=== PATIENT | female | born 1940 | race Caucasian/White ===

== ENCOUNTER 2023-06-09 15:30 | Outpatient (RCR) | payer MEDICARE, SELFPAY ==
--- NOTE | 2023-05-10 16:33 | PTOPEVAL1 ---
Assessment and note entered by Shwetha Gan, PT Evaluation Information Assessment Status Evaluation Diagnosis left foot drop Therapy condition Low back pain, weakness, abnormality of gait Onset February 2023 Subjective Information Had back surgery in December L4-5, reports shaved off disc and some bone. When released in February was released for all activity within her tolerance. Initially was just walking her driveway, did not do therapy initially. Is currently walking her subdivision 23 minutes with her granddaughters. Note her foot started hurting in October, went to walk-in clinic and didn't find anything. Went to pain management after this, Epidural lasted 3 weeks. Primary care had provided anti-biotics for cellulitis but found later it was gout. Had received a referral to foot doctor and he gave her a shot in the foot, 2 rounds of oral and one shot for her foot pain. Then he put her on allopurin for gout. Is doing her routine at least an hour a day with walking, then got to the point would wake her up at night but would move areas, and would also have numbness varying places. Does have arthrtis in right foot though. Foot doctor thinks is from her back. Is doing her morning exercises from [facility] and from her nephew. Today her left sit bone hurts and is causing limping Reported Pain Level Pain Score 2: Self Report Additional Pain Score Comments Left sit bone and left low back Assessment PT Clinical Summary Pt presented with complaints of foot/lower leg pain and tingling that changes location. Reports had back surgery earlier this year for L4-5 discectomy as well and after visiting [facility] doctors for foot pain was referred to therapy for left foot drop. Today she did not demo significnat foot drop while in the clinic though she did demo a limp with decreased stance time on left leg. She also reports pain in left lower back and iscial tuberosity on left side with prominent left sacral border. 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
--- NOTE | 2023-05-10 16:34 | OPREHPOC ---
Outpatient Therapy Plan of Care This is a Multidisciplinary Plan of Care that may contain components documented by all disciplines (PT, OT, and ST.) PT Problem 1 PT Problem #1 Knowledge Deficit PT Goal 1 Goal Pt will be independent in HEP Pt will verbalize understanding of diagnosis and prognosis Target Visit 8 PT Problem 2 PT Problem #2 Pain PT Goal 1 Goal Pt will report greatest pain level at 3/10 or less to improve ADLs Target Visit 8 PT Goal 2 Goal Pt will report resolution of pain to return to PLOF Target Visit 16 PT Problem 3 PT Problem #3 Impaired Strength PT Goal 1 Goal Pt will demo equal strength RLE and LLE in all tested planes Target Visit 8 PT Goal 2 Goal Pt will demo strength of 4/5 in all tested planes Target Visit 16 PT Problem 4 PT Problem #4 Impaired Gait PT Goal 1 Goal Pt will demo normalized gait pattern with equal stance time, step length, and ankle control. Target Visit 16
--- NOTE | 2023-06-09 16:30 | PTOPDC ---
Assessment and note entered by Shwetha Gan, PT Assessment Status Discharge Diagnosis left foot drop Therapy conditions low back pain, weakness, abnormality of gait and mobility Onset February 2023 Subjective Information Pt reports self perceived improvement 5-10% Reports hasn't been walking for a couple months. Is still on allopurin. Foot pain has not improved any since starting therapy right side sit bone is better most of the time . States left side is still bad, is weak and hurting . Pt has been consistent with heel lift in left shoe but this hasn't seemed to make a difference. Feels like her rib thing has set her back. Pt does feel like her low back pain and sit bone pain is less frequent but still duration. Reported Pain Level Pain Score 3,0: Self Report Assessment PT Clinical Summary Pt has been attending therapy for diagnosis of drop foot. Drop foot was not observed today and pt 's complaints had been focused on low back and hip through therapy. Pt reports only a 5-10% improvement overall since initiation of therapy. While she shows improvement in strength, alignment , ROM, and gait, she continues to have high levels of pain which have actually increased since starting therapy. Thus patient is being discharged due to max benefit being met. Pt was encouraged to reach out to her back surgeon for further consultation related to discomfort. Plan of Care PT Services Indicated No
== END 2023-06-09 16:37 | disposition home or self-care (01) ==
LOC: ANHHIPT 15:30
PROVIDERS: Visit Provider Family Medicine
DX: M21.372 Foot drop, left foot (principal)
CPT/HCPCS: 97110; 97112; 97140; 97162; 97530; 97750